=== PATIENT | female | born 1970 | race Caucasian/White ===

== ENCOUNTER 2018-04-04 02:44 | Outpatient (CLI) | payer MEDICAID | END 2018-04-04 23:59 | disposition home or self-care (01) | LOC: DIABETIC 02:44 | PROVIDERS: ATTEND Student in an Organized Health Care Education/Training Program | DX: E66.9 Obesity, unspecified (principal); E11.9 Type 2 diabetes mellitus without complications; J44.9 Chronic obstructive pulmonary disease, unspecified; Z71.3 Dietary counseling and surveillance | CPT/HCPCS: 97802 ==

== ENCOUNTER 2018-05-09 00:19 | Outpatient (CLI) | payer MEDICAID | END 2018-05-09 23:59 | disposition home or self-care (01) | LOC: DIABETIC 00:19 | PROVIDERS: ATTEND Student in an Organized Health Care Education/Training Program | DX: J44.9 Chronic obstructive pulmonary disease, unspecified (principal); E11.9 Type 2 diabetes mellitus without complications; E78.1 Pure hyperglyceridemia; E66.09 Other obesity due to excess calories | CPT/HCPCS: 97802 ==

== ENCOUNTER 2018-07-06 03:42 | Outpatient (CLI) | payer MEDICAID | END 2018-07-06 23:59 | disposition home or self-care (01) | LOC: DIABETIC 03:42 | PROVIDERS: ATTEND Surgery | DX: E66.01 Morbid (severe) obesity due to excess calories (principal); E11.9 Type 2 diabetes mellitus without complications; J44.9 Chronic obstructive pulmonary disease, unspecified | CPT/HCPCS: 97802 ==